=== PATIENT | male | born 1960 | race Caucasian/White ===

== ENCOUNTER 2021-02-12 19:03 | Emergency (ER) | payer BC ==
[~2021-02-12] VITALS: Ht 170.2 cm; Wt 77.1 kg
--- NOTE | 2021-02-12 19:22 | NUR ---
PT BIBRA C/O LEFT FLANK PAIN. PT AAOX4 BREATHING EVENLY AND UNLABORED. PT STATES THAT LAST WEEK HE WAS DX OF VIKA BELCHER. PT ATTACHED TO MONITOR AND POX. RT HAND 20G INITIATED, LAB AT BEDSIDE. PT GIVEN BLANKET AND CALL LIGHT WITHIN REACH
[2021-02-12] MEDS ORDERED: HYDROMORPHONE 1 MG/1 ML DISP.SYRIN ONE (19:28)
[2021-02-12] MEDS ORDERED: KETOROLAC TROMETHAMINE 15 MG/ML VIAL ONE ×2 (19:28→22:59)
[2021-02-12] MEDS ORDERED: ONDANSETRON HCL/PF 4 MG/2 ML VIAL ONE (19:28)
[2021-02-12] MEDS ORDERED: KETOROLAC TROMETHAMINE INJ 30 MG/ML VIAL IV ONE (19:30)
[2021-02-12] MEDS ORDERED: ONDANSETRON HCL/PF 4 MG/2 ML VIAL IVP ONE (19:30)
[2021-02-12] MEDS ORDERED: IV NS 0.9% 1,000 ML BAG IV ONE (19:30)
[2021-02-12] MEDS ORDERED: HYDROMORPHONE INJ 2 MG/ML DISP.SYRIN IV ONE (19:30)
--- NOTE | 2021-02-12 19:40 | NUR ---
Mat DANIELLE #20G S/L; PATENT AND INTACT BLOOD COLLECTED AND SENT TO LAB
--- NOTE | 2021-02-12 19:51 | NUR ---
TAKEN TO RADIOLOGY
--- NOTE | 2021-02-12 20:03 | NUR ---
PT RETURNED TO ER BED 12 FROM RADIOLOGY. WILL BE MOVED TO ER BED 7
[2021-02-12 20:13] LABS: BASOPHILS # (AUTO) 0.1 K/uL (0.0-0.2); BASOPHILS % (AUTO) 0.8 % (0.0-2.0); EOSINOPHILS % (AUTO) 0.3 % (0.0-6.0); HEMATOCRIT 43 % (39-51); HEMOGLOBIN 14.5 g/dL (13.5-17.5); LYMPHOCYTES # (AUTO) 0.9 K/uL (0.8-4.8); MEAN CORPUSCULAR HGB CONC 33 g/dl (31.0-36.0); MEAN CORPUSCULAR VOLUME 89 fL (80-96); MONOCYTES # (AUTO) 0.8 K/uL (0.1-1.30); MONOCYTES % (AUTO) 6.8 % (2.0-12.0); NEUTROPHILS # (AUTO) 9.8 K/uL (1.8-8.9); NEUTROPHILS % (AUTO) 84.1 % (43.0-81.0); PLATELET COUNT (AUTO) 162 K/uL (150-450); RED BLOOD CELL COUNT(AUTO) 4.86 MIL/uL (4.5-6.0); WHITE BLOOD COUNT (AUTO) 11.7 K/uL (4.3-11.0)
[2021-02-12 20:21] LABS: CALCIUM, SERUM 9.1 mg/dL (8.5-10.1); CREATININE 1.5 mg/dL (0.6-1.3); POTASSIUM 3.5 mmol/L (3.5-5.1)
[2021-02-12 20:25] LABS: ALBUMIN 3.8 g/dL (3.4-5.0); BILIRUBIN,DIRECT 0.2 mg/dL (0.0-0.2); BILIRUBIN,TOTAL 0.9 mg/dL (0.2-1.0)
--- NOTE | 2021-02-12 20:40 | NUR ---
PT DENIES PAIN AT THIS TIME. ASKED PT TO COLLECT URINE BUT UNABLE TO GO AT THIS TIME; WILL TRY AGAIN LATER. VSS. ALL NEEDS MET; PT IS COMFORTABLE.
--- NOTE | 2021-02-12 20:54 | NUR ---
URINE COLLECTED AND SENT TO LAB
[2021-02-12 21:07] LABS: BILIRUBIN,URINE SMALL (NEGATIVE); COLOR,URINE YELLOW (YELLOW); LEUKOCYTE ESTERASE ,URINE NEGATIVE (NEGATIVE); NITRITE, URINE NEGATIVE (NEGATIVE); PROTEIN,URINE TRACE mg/dl (NEGATIVE); UGLUCOSE NEGATIVE (NEGATIVE); UROBILINOGEN,URINE 0.2 EU/dL (0.2)
[2021-02-12 21:23] LABS: BACTERIA,URINE None seen /HPF (None Seen); RBC,URINE 21-50 /HPF (0-2); WBC,URINE 0-2 /HPF (0-3)
[2021-02-12 21:24] LABS: CALCIUM OXALATE CRYSTALS,UR Few /HPF (None Seen); SQUAMOUS EPITHELIAL CELL,UR 0-2 /HPF (None Seen); URIC ACID CRYSTALS,URINE Few /HPF (None Seen); YEAST,URINE Many /HPF (None Seen)
[2021-02-12] MEDS ORDERED: HYDR-4303 PO (21:27)
[2021-02-12] MEDS ORDERED: TAMS-12 PO (21:27)
--- NOTE | 2021-02-12 21:30 | NUR ---
CALLED LONG FOR IMAGING READ
--- NOTE | 2021-02-12 22:40 | NUR ---
IV removed. Catheter intact and site benign. Pressure and 4x4 applied to site. No bleeding noted.
[2021-02-12] MEDS ORDERED: ONDANSETRON 4 MG TAB.RAPDIS ONE (22:54)
[2021-02-12] MEDS ORDERED: ONDANSETRON 4 MG TAB.RAPDIS SL ONE (23:00)
[2021-02-12] MEDS ORDERED: KETOROLAC TROMETHAMINE INJ 60 MG/2 ML VIAL IM ONE (23:00)
--- NOTE | 2021-02-12 23:35 | NUR ---
Patient discharged to home in stable condition. Rx and Written and verbal after care instructions given. Patient verbalizes understanding of instruction.
[2021-02-13 00:18] VITALS: BP 143/84
== END 2021-02-12 23:35 | disposition home or self-care (01) ==
LOC: ER 19:32
DX: N20.0 Calculus of kidney (principal); Z79.899 Other long term (current) drug therapy
CPT/HCPCS: 36415; 74176; 80048; 80076; 81001; 83690; 85025; 87086; 96361; 96372; 96374; 96375; 99285; J1170; J1885 ×2; J2405; J7030; Q0162